=== PATIENT | male | born 2000 | race Caucasian/White ===

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

== ENCOUNTER 2021-01-06 18:23 | Emergency (ER) | payer OTHER ==
[~2021-01-06] VITALS: Ht 188 cm; Wt 104.3 kg
[2021-01-06 18:48] VITALS: BP 161/91
--- NOTE | 2021-01-06 19:22 | NUR ---
Dr. Cooley examining patient.
--- NOTE | 2021-01-06 19:37 | NUR ---
PT TAKEN TO BED 04 VIA WHEEL CHAIR
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
[2021-01-06 21:00] VITALS: BP 161/91
--- NOTE | 2021-01-06 21:00 | NUR ---
Patient discharged with v/s stable. Written and verbal after care instructions given and explained. Patient verbalized understanding. Ambulatory with steady gait. All questions addressed prior to discharge. Advised to follow up with PMD.
== END 2021-01-06 21:00 | disposition home or self-care (01) ==
LOC: MED 18:23
DX: S46.912A Strain of unspecified muscle, fascia and tendon at shoulder and upper arm level, left arm, initial encounter (principal); S16.1XXA Strain of muscle, fascia and tendon at neck level, initial encounter; S39.012A Strain of muscle, fascia and tendon of lower back, initial encounter; S20.219A Contusion of unspecified front wall of thorax, initial encounter; V89.2XXA Person injured in unspecified motor-vehicle accident, traffic, initial encounter; Y93.89 Activity, other specified; Y92.89 Other specified places as the place of occurrence of the external cause; Y99.8 Other external cause status
CPT/HCPCS: 71045; 73030; 73590; 99284

== ENCOUNTER 2022-11-03 21:50 | Emergency (ER) | payer OTHER ==
[~2022-11-03] VITALS: Ht 190.5 cm; Wt 112.5 kg
[2022-11-03 22:41] VITALS: BP 142/68
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
[2022-11-04] MEDS ORDERED: KETOROLAC 15 MG/ML VIAL IM ONE (02:10)
[2022-11-04] MEDS ORDERED: IBUP-2213 PO (02:14)
== END 2022-11-04 02:26 | disposition home or self-care (01) ==
LOC: MED 21:50
DX: S92.425A Nondisplaced fracture of distal phalanx of left great toe, initial encounter for closed fracture (principal); Z79.1 Long term (current) use of non-steroidal anti-inflammatories (NSAID); W20.8XXA Other cause of strike by thrown, projected or falling object, initial encounter; Y93.89 Activity, other specified; Y92.89 Other specified places as the place of occurrence of the external cause; Y99.8 Other external cause status
CPT/HCPCS: 73660; 96372; 99283; J1885; Q0092

== ENCOUNTER 2023-08-14 21:13 | Emergency (ER) | payer OTHER ==
[~2023-08-14] VITALS: Ht 188 cm; Wt 111.6 kg
[~2023-08-14 21:13] MED LIST: IBUP-2213 PO
[2023-08-14 21:49] VITALS: BP 130/78; PULSE 79; RESP 16; TEMP 97.9; O2SAT 100
[2023-08-14 22:32] VITALS: BP 130/78; PULSE 79; RESP 16; TEMP 97.9
[2023-08-14 22:41] VITALS: O2SAT 99
[2023-08-14] MEDS: KETOROLAC 30 MG/ML VIAL IVP ONE (23:53)
[2023-08-14] MEDS: oxyCODONE/APAP 5/325 MG 1 TAB TAB PO ONE (23:54)
== END 2023-08-14 23:52 | disposition home or self-care (01) ==
LOC: MED 21:13
DX: S46.311A Strain of muscle, fascia and tendon of triceps, right arm, initial encounter (principal); Z79.899 Other long term (current) drug therapy; X58.XXXA Exposure to other specified factors, initial encounter; Y92.89 Other specified places as the place of occurrence of the external cause; Y93.89 Activity, other specified; Y99.8 Other external cause status
CPT/HCPCS: 96372; 99283; J1885